=== PATIENT | female | born 1990 | race African-American/Black ===

== ENCOUNTER 2019-01-06 15:40 | Emergency (ER) | payer OTHER ==
[~2019-01-06] VITALS: Ht 165.1 cm; Wt 66.2 kg
[2019-01-06 16:02] VITALS: BP 105/64
--- NOTE | 2019-01-06 16:05 | NUR ---
urine cup handed to pt for sample
--- NOTE | 2019-01-06 17:31 | NUR ---
PATIENT WAS WHEELCHAIRED TO BED 8
--- NOTE | 2019-01-06 17:37 | NUR ---
Patient being evaluated by physician at bedside.
[2019-01-06] MEDS ORDERED: ONDANSETRON 4 MG ODT PO ONE (17:45)
--- NOTE | 2019-01-06 18:00 | NUR ---
28/ PRESENTS TO ED, C/O SUBJECTIVE FEVER, BODYACHES, N/V/D, SINCE THIS MORNING. TEMP 102.5 TEMPORAL AT THIS TIME, COOLING MEASURES ENSURED, WILL GIVE TYLENOL AND MOTRIN. PT DENIES COUGH. PT AWAKE AND ALERT, SKIN NORMAL WARM AND DRY, RR EVEN AND UNLABORED. DENIES MED HX. OTC VITAMINS; MOTRIN THIS AM WITHOUT RELIEF
[2019-01-06] MEDS ORDERED: ACETAMINOPHEN EXTRA STRENGTH 500 MG TAB PO ONE (18:15)
[2019-01-06] MEDS ORDERED: IBUPROFEN 600 MG TAB PO ONE (18:15)
[2019-01-06 19:17] VITALS: BP 100/56
--- NOTE | 2019-01-06 19:17 | NUR ---
TEMP 100.8, HR 91, PT REPORTS FEELING BETTER AFTER MOTRIN PO AND TYLENOL PO. PER DR JULES, PT IS OK FOR DISCHARGE. PT INSTRUCTED TO ALTERNATE MOTRIN PO AND TYLENOL PO WITH EDUCATION, PT VERBALIZED UNDERSTANDING.
--- NOTE | 2019-01-06 19:18 | NUR ---
Patient discharged with v/s stable. Written and verbal after care instructions given and explained. Patient alert, oriented and verbalized understanding of instructions. Ambulatory with steady gait. All questions addressed prior to discharge. ID band removed. Patient advised to follow up with PMD. Rx of ZOFRAN ODT given. Patient educated on indication of medication including possible reaction and side effects. Opportunity to ask questions provided and answered.
== END 2019-01-06 19:18 | disposition home or self-care (01) ==
LOC: MED 15:40
DX: R11.2 Nausea with vomiting, unspecified (principal); R19.7 Diarrhea, unspecified; R50.9 Fever, unspecified; R10.84 Generalized abdominal pain
CPT/HCPCS: 87804; 99284; Q0162

== ENCOUNTER 2019-01-07 20:51 | Emergency (ER) | payer OTHER ==
[~2019-01-07] VITALS: Ht 165.1 cm; Wt 65.8 kg
[2019-01-07 20:56] VITALS: BP 102/56
--- NOTE | 2019-01-07 21:05 | NUR ---
PT AMBULATED TO BED #12
--- NOTE | 2019-01-07 21:20 | NUR ---
28 Y/O F PRESENTS TO ER C/O OF GENERALIZED RASH ALL OVER BODY SINCE TODAY. PER PT "I ALWAYS BREAK OUT IN A RASH WHEN I HAVE A FEVER." PT TOOK IBUPROFEN AT 2100 FOR FEVER. CURRENT TEMPERATURE 99.5. PT WAS SEEN AT [facility] 01/06/19 FOR FEVER AND N/V/D. PT WAS PRESCRIBED ZOFRAN. PT DENIES ANY PAIN, PAIN LEVEL 0/10, JUST ITCHING AT RASH AREAS. NKA. NO MED HX. SAFETY MEASURES IN PLACE. WAITING FOR ERMD TO EVALUATE PT.
--- NOTE | 2019-01-07 21:38 | NUR ---
ERMD AT BEDSIDE
[2019-01-07 22:16] LABS: BASOPHILS % (AUTO) 0.1 % (0.0-2.0); EOSINOPHILS % (AUTO) 0.6 % (0.0-4.0); HEMATOCRIT 35.4 % (36-48); HEMOGLOBIN 11.8 g/dL (12.0-16.0); LYMPHOCYTES # (AUTO) 0.2 K/uL (2.5-16.5); LYMPHOCYTES % (AUTO) 5.5 % (20.5-51.1); MEAN CORPUSCULAR HEMOGLOBIN 31 pg (27-31); MEAN CORPUSCULAR HGB CONC 33 g/dL (33-37); MEAN CORPUSCULAR VOLUME 91.4 fL (80-94); MONOCYTES # (AUTO) 0.2 K/uL (0.8-1.0); MONOCYTES % (AUTO) 4.6 % (1.7-9.3); NEUTROPHILS % (AUTO) 89.2 % (42.2-75.2); PLATELET COUNT (AUTO) 144 K/uL (140-450); RED BLOOD CELL COUNT(AUTO) 3.87 MIL/uL (4.20-5.40); RED CELL DISTRIBUTION WIDTH 12.8 % (11.6-13.7); WHITE BLOOD COUNT (AUTO) 3.3 K/uL (4.8-10.8)
[2019-01-07 22:17] LABS: APPEARANCE,URINE CLEAR (CLEAR); BILIRUBIN,URINE NEGATIVE (NEGATIVE); BLOOD, URINE NEGATIVE (NEGATIVE); COLOR,URINE YELLOW (YELLOW); LEUKOCYTE ESTERASE ,URINE NEGATIVE (NEGATIVE); NITRITE, URINE NEGATIVE (NEGATIVE); UGLUCOSE NEGATIVE (NEGATIVE)
--- NOTE | 2019-01-07 22:20 | NUR ---
XRAY AT BEDSIDE
[2019-01-07 22:32] LABS: ALBUMIN 3.3 g/dL (3.4-5.0); ANION GAP 12.2 (8-16); CARBON DIOXIDE 25.7 mmol/L (21-32); CREATININE 0.9 mg/dL (0.6-1.3); TOTAL BILIRUBIN 0.4 mg/dL (0.0-1.0)
[2019-01-07 22:37] LABS: POTASSIUM 2.9 mmol/L (3.5-5.1)
--- NOTE | 2019-01-07 22:45 | NUR ---
PT RETURNED FROM CT
--- NOTE | 2019-01-07 23:04 | NUR ---
ORTHOSTATIC VS TAKEN. PT TOLERATED WELL, DENIES DIZZINESS WHEN CHANGING POSITIONS SUPINE:BP 90/47, HR 59; SITTING: BP 89/54, HR 55; STANDING: BP 96/59, HR 68
[2019-01-08] MEDS ORDERED: POTASSIUM CHLORIDE 10 MEQ TABER PO ONE (00:40)
[2019-01-08] MEDS ORDERED: MAGNESIUM OXIDE 400 MG TAB PO ONE (02:15)
--- NOTE | 2019-01-08 02:28 | NUR ---
PT AMBULATED TO RESTROOM
[2019-01-08] MEDS ORDERED: MAGNESIUM OXIDE 400 MG TAB ONE (02:33)
[2019-01-08 03:27] VITALS: BP 108/68
--- NOTE | 2019-01-08 03:27 | NUR ---
Patient does not wish to proceed with medical care recommended by DR. SANTOYO. Patient given information related to possible complications, up to and including , which could occur as a result of leaving hospital at this time. Patient verbalizes understanding of risks involved leaving against medical advice. Patient has signed AMA form. PT WAS GIVEN DOCUMENTATION EDUCATION ON POSSIBLE RISKS AND WAS GIVEN RESOURCES FOR OUTPATIENT CARE FOR A NEUROLOGIST AND A MECHANIC MARINE ENGINE
== END 2019-01-08 03:27 | disposition left against medical advice (07) ==
LOC: MED 20:51
DX: R21 Rash and other nonspecific skin eruption (principal); R50.9 Fever, unspecified; R51 Headache; R11.2 Nausea with vomiting, unspecified; R19.7 Diarrhea, unspecified; R10.9 Unspecified abdominal pain
CPT/HCPCS: 36415; 70450; 71045; 80053; 81003; 81025; 83605; 83690; 83735; 85025; 87040; 87081; 93005; 99284; Q0092